=== PATIENT | male | born 1935 | race Caucasian/White ===

== ENCOUNTER 2025-01-11 13:03 | Inpatient (IN) | payer MEDICARE ==
[2025-01-11] MEDS ORDERED: Sodium Chloride 0.9% 10 ML Syringe FLUSH PRN (14:04)
[2025-01-11 14:30] LABS: BASOPHILS ABSOLUTE AUTO 0.14 K/uL (0.02-0.10); BASOPHILS PERCENT AUTO 1.9 % (0.0-0.5); EOSINOPHILS ABSOLUTE AUTO 0.26 K/uL (0.04-0.40); EOSINOPHILS PERCENT AUTO 3.6 % (1.0-5.0); LYMPHOCYTES ABSOLUTE AUTO 1.52 K/uL (1.50-4.00); LYMPHOCYTES PERCENT AUTO 21.1 % (20.0-40.0); MEAN PLATELET VOLUME 9.8 fL (6.0-10.0); MONOCYTES ABSOLUTE AUTO 0.82 K/uL (0.20-0.80); MONOCYTES PERCENT AUTO 11.4 % (3.0-10.0); NEUTROPHILS ABSOLUTE AUTO 4.45 K/uL (2.00-7.50); NEUTROPHILS PERCENT AUTO 62.0 % (45.0-70.0); PLATELET COUNT,PLT 217 K/uL (150-400); RED BLOOD CELL COUNT 4.88 M/uL (4.50-6.50); RED CELL DISTRIBUTION WIDTH 13.0 % (11.0-16.0); WHITE BLOOD CELL COUNT,WBC 7.2 K/uL (4.0-11.0)
[2025-01-11 14:53] LABS: A/G RATIO 0.8 (0.8-2.0); ALANINE AMINOTRANSFERASE,ALT 19.0 U/L (12-78); ASPARTATE AMNIOTRANSFERASE,AST 22.0 U/L (15-37); BILIRUBIN TOTAL 0.4 mg/dL (0.0-1.0); BLOOD UREA NITROGEN,BUN 24.0 mg/dL (8-26); CARBON DIOXIDE,CO2 26.2 mmol/L (21.0-32.0); CHLORIDE,CL 104.0 mmol/L (98-107); CREATININE 1.73 mg/dL (0.70-1.30); EST CRCL DRUG DOSING (CG) 26.89 mL/min; ESTIMATED GFR 38.0 mL/min (>60); GLUCOSE RANDOM 108.0 mg/dL (74-100); POTASSIUM,K 3.8 mmol/L (3.5-5.1); PRO B-TYPE NATRIUR PEPT,BNPPRO 495.0 pg/mL (0-450); PROTEIN TOTAL,TP 7.7 g/dL (6.4-8.2); SODIUM,NA 139.0 mmol/L (136-145); TROPONIN I HIGH SENSITIVITY 6.4 pg/ml (<=60.4)
[2025-01-11] MEDS: Sodium Chloride 0.9% 50 ML SDV FLUSH ONE (16:10)
[2025-01-11] MEDS: Iodixanol 652 MG/ML 100 ML Bottle IV SCH (16:10)
[2025-01-11] MEDS: Budesonide 0.5 MG/2 ML Neb Susp NEB SCH (20:29)
[2025-01-12 08:12] LABS: BLOOD UREA NITROGEN,BUN 15.0 mg/dL (8-26); CARBON DIOXIDE,CO2 22.8 mmol/L (21.0-32.0); CHLORIDE,CL 110.0 mmol/L (98-107); CREATININE 1.02 mg/dL (0.70-1.30); EST CRCL DRUG DOSING (CG) 43.19 mL/min; ESTIMATED GFR 71.0 mL/min (>60); GLUCOSE RANDOM 100.0 mg/dL (74-100); POTASSIUM,K 4.1 mmol/L (3.5-5.1); SODIUM,NA 139.0 mmol/L (136-145)
[2025-01-12] MEDS: Acetylcysteine 20% 200 MG/ML 30 ML Soln SDV NEB ONE (11:55)
[2025-01-13 09:13] LABS: BLOOD UREA NITROGEN,BUN 14.0 mg/dL (8-26); CARBON DIOXIDE,CO2 23.2 mmol/L (21.0-32.0); CHLORIDE,CL 107.0 mmol/L (98-107); CREATININE 1.06 mg/dL (0.70-1.30); EST CRCL DRUG DOSING (CG) 41.56 mL/min; ESTIMATED GFR 68.0 mL/min (>60); GLUCOSE RANDOM 104.0 mg/dL (74-100); POTASSIUM,K 3.8 mmol/L (3.5-5.1); SODIUM,NA 138.0 mmol/L (136-145)
[2025-01-13 09:35] LABS: PCO2 ARTERIAL 29.8 mmHg (35-45)
[2025-01-13 09:36] LABS: BASE EXCESS ARTERIAL -5.3 (-2-2); BICARBONATE,ARTERIAL 19.2 mmol/L (22-26); O2 SATURATION ARTERIAL 99.7 % (95-98); PO2 ARTERIAL 186.5 mmHg (80-105)
[2025-01-13 09:41] LABS: MEAN PLATELET VOLUME 10.0 fL (6.0-10.0); PLATELET COUNT,PLT 162.0 K/uL (150-400); RED BLOOD CELL COUNT 3.8 M/uL (4.50-6.50); RED CELL DISTRIBUTION WIDTH 12.6 % (11.0-16.0); WHITE BLOOD CELL COUNT,WBC 7.3 K/uL (4.0-11.0)
[2025-01-13] MEDS: methylPREDNISolone Sodium Succinate 40 MG/1 ML SDV IVPUSH SCH (09:55)
[2025-01-13] MEDS: Iopamidol 612 MG/ML 100 ML Bottle IV PRN (12:10)
[2025-01-13] MEDS: Sodium Chloride 0.9% 50 ML SDV FLUSH SCH (12:10)
[2025-01-14] MEDS: Lactobacillus Acidophilus/Lactobacillus Sporogenes (Probiotic) Tab PO SCH (07:31)
[2025-01-14 12:11] LABS: MEAN PLATELET VOLUME 9.7 fL (6.0-10.0); PLATELET COUNT,PLT 208 K/uL (150-400); RED BLOOD CELL COUNT 4.39 M/uL (4.50-6.50); RED CELL DISTRIBUTION WIDTH 12.5 % (11.0-16.0); WHITE BLOOD CELL COUNT,WBC 18.9 K/uL (4.0-11.0)
[2025-01-14 12:51] LABS: LYMPHOCYTES PERCENT MAN 3.0 % (20.0-40.0); MONOCYTES PERCENT MAN 3.0 % (3.0-10.0); SEG NEUTROPHILS PERCENT MAN 94.0 % (45.0-70.0)
[2025-01-14 12:52] LABS: PLATELET COUNT ESTIMATE ADEQUATE
[2025-01-16 09:00] LABS: HIV 1,2 COMBO ANTIGEN/ANTIBODY Negative (Negative)
== END 2025-01-14 16:46 | DRG 195 ==
LOC: LB.ED 13:03 → LB.MS 18:47 → UNDOADMIN 19:21 → LB.MS 19:21
PROVIDERS: ADMIT Surgery; ATTEND Surgery
PROC: 3E03329 Introduction of Other Anti-infective into Peripheral Vein, Percutaneous Approach (ICD-10-PCS; principal; 2025-01-11)
PROC: 5A0935A Assistance with Respiratory Ventilation, Less than 24 Consecutive Hours, High Flow/Velocity Cannula (ICD-10-PCS; 2025-01-14)
DX: J18.9 Pneumonia, unspecified organism (principal); R09.02 Hypoxemia; I10 Essential (primary) hypertension; I25.2 Old myocardial infarction; Z79.82 Long term (current) use of aspirin; Z79.890 Hormone replacement therapy; Z79.899 Other long term (current) drug therapy; Z98.49 Cataract extraction status, unspecified eye; Z98.890 Other specified postprocedural states; Z99.81 Dependence on supplemental oxygen
CPT/HCPCS: 36415; 71045; 71275; 80053; 83735; 83880; 84484; 85025; 85379; 93005; 94640; 96360; 99285; A9270; J0696; J7030 ×2; 36600; 80048; 82803; 85027; 86140; 87205; 87389; 87428-QW; 93010; 99223; 99232; 99238; J2919; Q9967